=== PATIENT | female | born 1975 | race Caucasian/White ===

== ENCOUNTER → 2016-10-10 | Outpatient (CLI) | payer BC ==
[2016-10-10 15:07] LABS: ALBUMIN 3.7 GM/DL (3.2-5.2); ALBUMIN/GLOBULIN RATIO 1.03 (1.00-1.93); ALKALINE PHOSPHATASE 89 U/L (45-117); ALT/SGPT 29 U/L (12-78); ANION GAP 11 MEQ/L (8-16); AST/SGOT 16 U/L (15-37); BILIRUBIN,TOTAL 0.5 MG/DL (0.2-1.0); BLOOD UREA NITROGEN 6 MG/DL (7-18); CALCIUM LEVEL 8.8 MG/DL (8.5-10.1); CARBON DIOXIDE LEVEL 25 MEQ/L (21-32); CHLORIDE LEVEL 103 MEQ/L (98-107); CHOLESTEROL LEVEL 135 MG/DL (<200); CREATININE FOR GFR 0.55 MG/DL (0.55-1.02); GLOMERULAR FILTRATION RATE > 60.0 (>58); GLUCOSE, FASTING 80 MG/DL (70-105); POTASSIUM SERUM 3.9 MEQ/L (3.5-5.1); SODIUM LEVEL 139 MEQ/L (136-145); TOTAL PROTEIN 7.3 GM/DL (6.4-8.2); TRIGLYCERIDES LEVEL 78 MG/DL (<150)
== END ==
LOC: M LAB 08:00
PROVIDERS: ATTEND Family Medicine
DX: E66.01 Morbid (severe) obesity due to excess calories (principal)

== ENCOUNTER → 2016-10-10 | Outpatient (CLI) | payer BC | LOC: M LAB 10-08 11:56 | PROVIDERS: ATTEND Nurse Practitioner Psychiatric/Mental Health | DX: Z13.21 Encounter for screening for nutritional disorder (principal) ==

== ENCOUNTER → 2016-10-29 | Outpatient (CLI) | payer BC | LOC: M SMT 14:45 | PROVIDERS: ATTEND Advanced Practice Midwife | DX: N91.1 Secondary amenorrhea (principal) ==

== ENCOUNTER → 2016-11-27 | Outpatient (REF) | payer BC | LOC: M SFHCWAGY 13:37 | PROVIDERS: ATTEND Nurse Practitioner Family | DX: Z01.419 Encounter for gynecological examination (general) (routine) without abnormal findings (principal); Z11.51 Encounter for screening for human papillomavirus (HPV) ==

== ENCOUNTER → 2017-08-18 | Outpatient (CLI) | payer BC | LOC: M SLEEP HO 14:55 | DX: G47.33 Obstructive sleep apnea (adult) (pediatric) (principal) | CPT/HCPCS: G0399 ==

== ENCOUNTER → 2017-10-22 | Outpatient (CLI) | payer BC | LOC: M SLEEP 20:00 | DX: G47.33 Obstructive sleep apnea (adult) (pediatric) (principal) ==

== ENCOUNTER 2018-02-25 15:45 | Emergency (ER) | payer OTHER, BC | END 2018-02-25 17:15 | disposition home or self-care (01) | LOC: M ED 15:45 | DX: S20.219A Contusion of unspecified front wall of thorax, initial encounter (principal); V43.53XA Car driver injured in collision with pick-up truck in traffic accident, initial encounter; Y92.410 Unspecified street and highway as the place of occurrence of the external cause; W22.11XA Striking against or struck by driver side automobile airbag, initial encounter; Z98.84 Bariatric surgery status | CPT/HCPCS: 71046 ==

== ENCOUNTER → 2018-03-12 | Outpatient (CLI) | payer OTHER ==
--- NOTE | 2018-03-12 11:52 | REP ---
CHEST X-RAY: Two views. HISTORY: Chest pain. COMPARISON CHEST X-RAY: February 25, 2018. FINDINGS: The lungs are well inflated and clear. Pleural angles are sharp. Heart size is normal. Pulmonary vasculature is not increased. No significant bony abnormality is seen. IMPRESSION: No active disease. There is a zone of minimal linear fibrosis anteriorly on the lateral radiograph in the retrosternal clear space. This is unchanged. Electronically Signed by Krzysztof Guerrero MD 03/12/2018 05:02 P
== END ==
LOC: M LRY 10:40
PROVIDERS: ATTEND Nurse Practitioner Family
DX: R07.9 Chest pain, unspecified (principal)

== ENCOUNTER → 2018-03-12 | Outpatient (REF) | payer OTHER ==
[2018-03-12 11:35] LABS: BASO % 0.5 % (0.0-1.0); EOS # 0.2 10^3/uL (0.0-0.50); EOS % 2.1 % (0.0-3.0); HEMATOCRIT 44.1 % (36.0-47.0); HEMOGLOBIN 14.4 g/dl (12.0-15.5); LYMPH # 2.2 10^3/uL (1.5-4.5); LYMPH % 29.4 % (24.0-44.0); MEAN CORPUSCULAR HEMOGLOBIN 30.1 pg (27.0-33.0); MEAN CORPUSCULAR HGB CONC 32.7 g/dl (32.0-36.5); MEAN CORPUSCULAR VOLUME 92.1 fl (80.0-96.0); MONO # 0.6 10^3/uL (0.0-0.8); MONO % 7.7 % (0.0-5.0); NEUTROPHILS # 4.6 10^3/uL (1.8-7.7); PLATELET COUNT, AUTOMATED 251 10^3/uL (150-450); RED BLOOD COUNT 4.79 10^6/uL (4.00-5.40); WHITE BLOOD COUNT 7.6 10^3/uL (4.0-10.0)
[2018-03-12 12:06] LABS: ALBUMIN 3.9 GM/DL (3.2-5.2); ALT/SGPT 34 U/L (12-78); BILIRUBIN,TOTAL 0.5 MG/DL (0.2-1.0); BLOOD UREA NITROGEN 7 MG/DL (7-18); CARBON DIOXIDE LEVEL 29 MEQ/L (21-32); CHLORIDE LEVEL 103 MEQ/L (98-107); CK-MB VALUE MASS < 1.0 NG/ML (<3.6); CPK CREATINE PHOSPHOKINASE 47 U/L (26-192); CREATININE FOR GFR 0.59 MG/DL (0.55-1.30); GLOMERULAR FILTRATION RATE > 60.0 (>58); GLUCOSE, FASTING 79 MG/DL (70-100); MB/CK RELATIVE INDEX 2.13 (< OR =4); POTASSIUM SERUM 4.2 MEQ/L (3.5-5.1); SODIUM LEVEL 139 MEQ/L (136-145); TOTAL PROTEIN 8.1 GM/DL (6.4-8.2); TROPONIN I < 0.02 NG/ML (< 0.10)
== END ==
LOC: M SFHCLERA 10:25
PROVIDERS: ATTEND Nurse Practitioner Family
DX: R07.9 Chest pain, unspecified (principal)

== ENCOUNTER → 2018-07-08 | Outpatient (REF) | payer BC | LOC: M SFHCLERA 18:17 | PROVIDERS: ATTEND Nurse Practitioner Family | DX: R82.90 Unspecified abnormal findings in urine (principal) ==

== ENCOUNTER 2019-08-17 08:53 | Emergency (ER) | payer OTHER, BC ==
[~2019-08-17] VITALS: Ht 162.6 cm; Wt 77.4 kg
--- NOTE | 2019-08-17 10:26 | REP ---
CT BRAIN: 08/17/2019 INDICATION: Head trauma. TECHNIQUE: Unenhanced axial CT images of the brain were obtained from skull base to the vertex with coronal reconstructions provided. COMPARISON: None. FINDINGS: There is no acute intracranial hemorrhage, acute cortical infarction, mass effect or hydrocephalus. No acute calvarial fracture is present. IMPRESSION: No acute intracranial process. MTDD
--- NOTE | 2019-08-17 11:04 | REP ---
NASAL BONES: Three views of the nasal bones are performed. No fracture is seen of the nasal bones or maxillary spines. The visualized paranasal sinuses are clear. IMPRESSION: No evidence of nasal bone fracture. Electronically Signed by Betito Ace MD 08/18/2019 10:14 P
--- NOTE | 2019-08-17 11:05 | REP ---
LEFT LOWER LEG, AP AND LATERAL: AP and lateral views of the left lower leg performed. No acute fracture or dislocation is seen. There is moderate inferior calcaneal spurring. IMPRESSION: No acute fracture or dislocation. Electronically Signed by Betiot Ace MD 08/18/2019 10:15 P
--- NOTE | 2019-08-17 11:06 | REP ---
LEFT HAND, FOUR VIEWS: There is no evidence of an acute fracture, dislocation or intrinsic bone disease. A small spur is seen at the 4th distal phalanx. There is mild erosive change of the tuft of the 3rd distal phalanx. IMPRESSION: No fracture or dislocation. Unreviewed
[2019-08-17 11:44] VITALS: BP 121/69
== END 2019-08-17 11:46 | disposition home or self-care (01) ==
LOC: M ED 08:53
DX: S09.90XA Unspecified injury of head, initial encounter (principal); S80.812A Abrasion, left lower leg, initial encounter; S80.12XA Contusion of left lower leg, initial encounter; S60.222A Contusion of left hand, initial encounter; S50.12XA Contusion of left forearm, initial encounter; W10.8XXA Fall (on) (from) other stairs and steps, initial encounter; Y92.238 Other place in hospital as the place of occurrence of the external cause; Z98.84 Bariatric surgery status

== ENCOUNTER → 2021-10-15 | Outpatient (CLI) | payer BC ==
[2021-10-15 19:19] LABS: BASO % 0.5 % (0.0-1.0); EOS # 0.2 10^3/uL (0.0-0.5); EOS % 2.3 % (0.0-3.0); HEMATOCRIT 41.5 % (36.0-47.0); LYMPH # 2.8 10^3/uL (1.5-5.0); MEAN CORPUSCULAR HEMOGLOBIN 27.8 pg (27.0-33.0); MEAN CORPUSCULAR HGB CONC 31.3 g/dl (32.0-36.5); MEAN CORPUSCULAR VOLUME 88.7 fl (80.0-96.0); MONO # 0.6 10^3/uL (0.0-0.8); MONO % 7.3 % (2.0-8.0); NEUTROPHILS # 4.6 10^3/uL (1.5-8.5); NEUTROPHILS % 55.5 % (36.0-66.0); PLATELET COUNT, AUTOMATED 234 10^3/uL (150-450); RED BLOOD COUNT 4.68 10^6/uL (4.00-5.40); WHITE BLOOD COUNT 8.2 10^3/uL (4.0-10.0)
[2021-10-15 20:58] LABS: ALBUMIN 3.7 GM/DL (3.2-5.2); ALT/SGPT 24 U/L (12-78); BILIRUBIN,TOTAL 0.5 MG/DL (0.2-1.0); BLOOD UREA NITROGEN 7 MG/DL (7-18); CALCIUM LEVEL 8.9 MG/DL (8.5-10.1); CARBON DIOXIDE LEVEL 27 MEQ/L (21-32); CHLORIDE LEVEL 104 MEQ/L (98-107); CHOLESTEROL LEVEL 155 MG/DL (<200); CHOLESTEROL RISK RATIO 2.152 (<5); CREATININE FOR GFR 0.62 MG/DL (0.55-1.30); GLOMERULAR FILTRATION RATE > 60.0 (>58); GLUCOSE, FASTING 87 MG/DL (70-100); HDL CHOLESTEROL 72 MG/DL (>40); IRON (FE) 67 UG/DL (50-170); LDL CHOLESTEROL 72 MG/DL (<100); NON-HDL-C 83 MG/DL; POTASSIUM SERUM 3.6 MEQ/L (3.5-5.1); SODIUM LEVEL 139 MEQ/L (136-145); TOTAL PROTEIN 7.7 GM/DL (6.4-8.2); TRIGLYCERIDES LEVEL 53 MG/DL (<150)
[2021-10-15 21:20] LABS: TESTOSTERONE 37 NG/DL (14-76); TOTAL 25(OH) VITAMIN D 26.2 NG/ML (30.0-100.0)
[2021-10-15 21:21] LABS: FOLATE 14.4 NG/ML; VITAMIN B12 LEVEL 585 PG/ML
== END ==
LOC: M LAB 18:46
PROVIDERS: ATTEND Physician Assistant
DX: Z98.84 Bariatric surgery status (principal); L68.0 Hirsutism

== ENCOUNTER → 2023-04-02 | Outpatient (CLI) | payer BC | LOC: M RAD 13:36 | PROVIDERS: ATTEND Physician Assistant Medical | DX: M25.511 Pain in right shoulder (principal); S42.201A Unspecified fracture of upper end of right humerus, initial encounter for closed fracture; W19.XXXA Unspecified fall, initial encounter; Y92.9 Unspecified place or not applicable; Y93.9 Activity, unspecified; Y99.9 Unspecified external cause status ==

== ENCOUNTER 2023-06-04 10:45 | Outpatient (RCR) | payer BC | END 2023-06-08 | LOC: M PT 10:45 | PROVIDERS: ATTEND Physician Assistant | DX: S42.251D Displaced fracture of greater tuberosity of right humerus, subsequent encounter for fracture with routine healing (principal) ==

== ENCOUNTER → 2023-06-27 | Outpatient (CLI) | payer BC | LOC: M RAD 15:42 | PROVIDERS: ATTEND Physician Assistant | DX: S42.251D Displaced fracture of greater tuberosity of right humerus, subsequent encounter for fracture with routine healing (principal) ==

== ENCOUNTER → 2023-07-08 | Outpatient (RCR) | payer BC | LOC: M PT 06-09 13:37 | PROVIDERS: ATTEND Physician Assistant | DX: S42.251D Displaced fracture of greater tuberosity of right humerus, subsequent encounter for fracture with routine healing (principal) ==

== ENCOUNTER 2023-07-10 12:18 | Outpatient (RCR) | payer BC | END 2023-08-08 | LOC: M PT 12:18 | PROVIDERS: ATTEND Physician Assistant | DX: S42.251D Displaced fracture of greater tuberosity of right humerus, subsequent encounter for fracture with routine healing (principal) ==

== ENCOUNTER → 2023-07-10 | Outpatient (CLI) | payer BC | LOC: M WHC 14:42 | PROVIDERS: ATTEND Physician Assistant | DX: Z12.31 Encounter for screening mammogram for malignant neoplasm of breast (principal) ==

== ENCOUNTER → 2023-09-03 | Outpatient (CLI) | payer BC ==
[2023-09-03 13:27] LABS: BASO % 0.6 % (0.0-1.0); EOS # 0.3 10^3/uL (0.0-0.5); EOS % 4.2 % (0.0-3.0); HEMATOCRIT 37.8 % (36.0-47.0); HEMOGLOBIN 11.9 g/dl (12.0-15.5); LYMPH # 2.2 10^3/uL (1.5-5.0); LYMPH % 33.6 % (24.0-44.0); MEAN CORPUSCULAR HEMOGLOBIN 26.5 pg (27.0-33.0); MEAN CORPUSCULAR HGB CONC 31.5 g/dl (32.0-36.5); MEAN CORPUSCULAR VOLUME 84.2 fl (80.0-96.0); MONO # 0.6 10^3/uL (0.0-0.8); NEUTROPHILS # 3.5 10^3/uL (1.5-8.5); NEUTROPHILS % 52.4 % (36.0-66.0); PLATELET COUNT, AUTOMATED 254 10^3/uL (150-450); RED BLOOD COUNT 4.49 10^6/uL (4.00-5.40); WHITE BLOOD COUNT 6.6 10^3/uL (4.0-10.0)
[2023-09-03 13:51] LABS: HEMOGLOBIN A1c 5.4 % (4.0-6.0)
[2023-09-03 13:54] LABS: ALBUMIN 3.4 G/DL (3.2-5.2); ALKALINE PHOSPHATASE 114 U/L (46-116); ALT/SGPT 18 U/L (7.0-40); AST/SGOT 10 U/L (<34); BILIRUBIN,TOTAL 0.4 MG/DL (0.3-1.2); BLOOD UREA NITROGEN 8 MG/DL (9-23); CALCIUM LEVEL 8.8 MG/DL (8.5-10.1); CARBON DIOXIDE LEVEL 28 MMOL/L (20-31); CHLORIDE LEVEL 106 MMOL/L (98-107); CHOLESTEROL LEVEL 143 MG/DL (<200); CHOLESTEROL RISK RATIO 2.32 (<5); CREATININE FOR GFR 0.64 MG/DL (0.55-1.30); FERRITIN 6.7 NG/ML (7.3-270.7); GLOMERULAR FILTRATION RATE > 60.0 (>51); GLUCOSE, FASTING 91 MG/DL (60-100); HDL CHOLESTEROL 61.6 MG/DL (>40); IRON (FE) 30 UG/DL (50-170); LDL CHOLESTEROL 72.8 MG/DL (<100); NON-HDL-C 81.4 MG/DL; PERCENT SATURATION 8.5 % (13.2-45.0); POTASSIUM SERUM 4.4 MMOL/L (3.5-5.1); SODIUM LEVEL 139 MMOL/L (136-145); TOTAL 25(OH) VITAMIN D 17.6 NG/ML (20.0-100.0); TOTAL IRON BINDING CAPACITY 353 UG/DL (250-425); TOTAL PROTEIN 6.7 G/DL (5.7-8.2); TRIGLYCERIDES LEVEL 43 MG/DL (<150)
[2023-09-03 13:55] LABS: FREE T4 1.11 NG/DL (0.89-1.76)
[2023-09-03 13:56] LABS: VITAMIN B12 LEVEL 253 PG/ML (211-911)
[2023-09-04 07:21] LABS: DEHYDROEPIANDROSTERONE SULFATE 81 mcg/dL (15-205)
== END ==
LOC: M PLALAB 10:19
PROVIDERS: ATTEND Physician Assistant
DX: E66.01 Morbid (severe) obesity due to excess calories (principal); Z68.41 Body mass index [BMI] 40.0-44.9, adult; R63.5 Abnormal weight gain; E07.9 Disorder of thyroid, unspecified; Z13.1 Encounter for screening for diabetes mellitus; Z13.220 Encounter for screening for lipoid disorders

== ENCOUNTER 2023-09-17 14:08 | Outpatient (CLI) | payer BC ==
[~2023-09-17] VITALS: Ht 162.6 cm; Wt 97.7 kg
[~2023-09-17 14:08] MED LIST: ALBUTEROL SULFATE 2.5MG/0.5ML INH NEB SOLN INH PRN; EPINEPHrine INJ 1 MG/ML 1ML AMP IM PRN; diphenhydrAMINE 50MG/ML VIAL IV PRN; methylPREDNISolone 125MG 2ML VIAL IV PRN
[2023-09-17 14:30] VITALS: BP 125/82; O2SAT 98
[2023-09-17] MEDS ORDERED: NS 1,000 ML IV SCH (14:30)
[2023-09-17] MEDS: FERRIC CARBOXYMALTOSE INJ 750 MG in NS 250 ML (>50kg) IV ONE (14:35)
[2023-09-17 15:40] VITALS: BP 124/67; O2SAT 100
== END 2023-09-17 16:00 ==
LOC: M INFU 14:08
PROVIDERS: ATTEND Physician Assistant
DX: D50.9 Iron deficiency anemia, unspecified (principal)
CPT/HCPCS: 96365; J1439

== ENCOUNTER 2023-09-24 14:30 | Outpatient (CLI) | payer BC ==
[~2023-09-24] VITALS: Ht 162.6 cm; Wt 102.3 kg
[2023-09-24 14:30] VITALS: BP 126/63; O2SAT 100
[~2023-09-24 14:30] MED LIST changes: +NS 1,000 ML IV SCH
[2023-09-24] MEDS: FERRIC CARBOXYMALTOSE INJ 750 MG in NS 250 ML (>50kg) IV ONE (14:47)
[2023-09-24 16:00] VITALS: BP 133/69; O2SAT 100
== END 2023-09-24 16:00 ==
LOC: M INFU 14:30
PROVIDERS: ATTEND Physician Assistant
DX: D50.9 Iron deficiency anemia, unspecified (principal)
CPT/HCPCS: 96365; J1439

== ENCOUNTER 2024-09-16 04:06 | Emergency (ER) | payer BC ==
[~2024-09-16] VITALS: Ht 162.6 cm; Wt 100.0 kg
[2024-09-16] MEDS ORDERED: D-3-50003 (10:21)
[2024-09-16] MEDS ORDERED: SPIR-10 (10:21)
[2024-09-16] MEDS: FLUORESCEIN OPHTH 1 MG STRIP OS ONE (10:25)
[2024-09-16] MEDS: TETRACAINE 0.5% OPHTH SOLN 4ML OS ONE (10:25)
[2024-09-16] MEDS ORDERED: MOXI0.5S OS (10:40)
[2024-09-16 10:58] VITALS: BP 138/94; TEMP 98.8; O2SAT 100
== END 2024-09-16 11:04 | disposition home or self-care (01) ==
LOC: M ED 04:06
DX: S05.02XA Injury of conjunctiva and corneal abrasion without foreign body, left eye, initial encounter (principal); Y92.9 Unspecified place or not applicable; Y93.9 Activity, unspecified; Y99.9 Unspecified external cause status; F10.10 Alcohol abuse, uncomplicated; Z79.899 Other long term (current) drug therapy